=== PATIENT | female | born 1975 | race Caucasian/White ===

== ENCOUNTER 2016-06-02 17:12 | Emergency (ER) | payer SELFPAY ==
[2016-06-02 17:29] VITALS: BP 128/98; PULSE 90; RESP 20; TEMP 98.7
--- NOTE | 2016-06-02 18:06 | ED ---
General Adult HPI - General Chief complaint: Extremity Injury, Lower Stated complaint: Foot pain/teeth are loose Time Seen by Provider: 06/02/16 17:40 Source: patient, RN notes reviewed Mode of arrival: ambulatory Limitations: no limitations - History of Present Illness Initial comments: This is a 41-year-old female presents with right ankle pain 2 weeks after a fall. Patient states she was walking in tall heels when she fell. Patient denies any head injury but states she might have passed out from the heat in [place]. Patient states this happened 2 weeks ago and denies any nausea/ vomiting, headache, neck pain or back pain. Patient did not get an x-ray to the right ankle and she has been able to ambulate but this is painful. Patient has noticed some swelling to the lateral aspect of the right ankle. Patient also complains of dental pain. Patient states multiple teeth to the lower jaw are loose. Patient states she recently moved from [place] and does not have a dentist here yet. Patient denies any purulent drainage or follow-up odor from the mouth. Patient denies any recent fever, chills, shortness breath, chest pain , abdominal pain, nausea/vomiting/diarrhea, back pain, numbness, tingling, hematuria, headache, or visual changes, or any other complaints. - Related Data Home Medications Medication Instructions Recorded Confirmed ALPRAZolam [Xanax] 1 tab PO DAILY 06/02/16 06/02/16 Previous Rx's Medication Instructions Recorded Acetaminophen-Codeine 300-30mg 1 tab PO Q6H #7 tablet 06/02/16 [Tylenol #3] Penicillin V Potassium [Pen Vee K] 500 mg PO BID 7 Days 06/02/16 Allergies Allergy/AdvReac Type Severity Reaction Status Date / Time ketorolac [From Toradol] Allergy Swelling Verified 06/02/16 17:29 sulfamethoxazole Allergy Rash/Hives Verified 06/02/16 17:29 [From Bactrim] trimethoprim [From Bactrim] Allergy Rash/Hives Verified 06/02/16 17:29 Review of Systems ROS Statement: Those systems with pertinent positive or pertinent negative responses have been documented in the HPI. ROS Other: All systems not noted in ROS Statement are negative. Past Medical History Past Medical History: No Reported History History of Any Multi-Drug Resistant Organisms: None Reported Past Surgical History: Appendectomy, Back Surgery, Cholecystectomy, Hysterectomy Past Psychological History: Anxiety, Depression Smoking Status: Current every day smoker Past Alcohol Use History: None Reported Past Drug Use History: Marijuana General Exam - General Exam Comments Initial Comments: General: The patient is awake and alert, in no distress, and does not appear acutely ill. Eye: Pupils are equal, round and reactive to light, extra-ocular movements are intact. No nystagmus. There is normal conjunctiva bilaterally. No signs of icterus. Mouth and throat: Generalized tooth decay. There are multiple loose teeth to the lower jaw line. There is a fractured tooth #19 approximately. No purulent drainage. There are moist mucous membranes and no oral lesions. Neck: Submandibular lymphadenopathy present that is slightly tender. The neck is supple, there is no JVD. No cervical midline tenderness. Cardiovascular: There is a regular rate and rhythm. No murmur, rub or gallop is appreciated. Respiratory: Lungs are clear to auscultation, respirations are non-labored, breath sounds are equal. No wheezes, stridor, rales, or rhonchi. Musculoskeletal: tenderness to the lateral aspect of the right ankle with localized swelling. Capillary refill is normal at less than 2 seconds and posterior tibial pulses are 2+ bilaterally. Normal ROM, Strength 5/5. Sensation intact. Radial pulses equal bilaterally 2+. Neurological: A&O x 3. CN II-XII intact, There are no obvious motor or sensory deficits. Coordination appears grossly intact. Speech is normal. Skin: No external facial swelling. Skin is warm and dry and no rashes or lesions are noted. Psychiatric: Cooperative, appropriate mood & affect, normal judgment. Limitations: no limitations Course Vital Signs 06/02/16 17:25 Temperature 98.7 F Pulse Rate 90 Respiratory 20 Rate Blood Pressure 128/98 O2 Sat by Pulse 97 Oximetry Medical Decision Making - Medical Decision Making This is a 41-year-old female presents with right ankle pain and dental pain. On physical exam there is tenderness to the lateral aspect of the right ankle with localized swelling. Capillary refill is normal at less than 2 seconds and posterior tibial pulses are 2+ bilaterally. There are multiple areas of tooth decay, but no sign of abscess. Patient is afebrile in the EC. An x-ray of the right ankle is done and reviewed showing: Chip fracture of the distal fibula without significant displacement. Reported by Dr. Grimm. A short leg posterior OCL splint to the right lower extremity was placed. Neurovascular was rechecked and is intact. Patient was instructed to stay non-weightbearing to the lower extremity. Patient was instructed to rest, ice, elevate and keep splint on until follow-up with orthopedics. Patient will be given crutches. Discussed with patient to follow-up with orthopedics in the next 1-2 days. Please return to the EC symptoms worsen or for any other concerns. Discussed that patient will be started on a course of antibiotics and discussed close follow-up with a dentist. Patient states she is ALLERGIC to tramadol and patient is requesting something stronger than Tylenol number threes. I discussed with patient that she will receive a short prescription of Tylenol # 3. Discussed [id number] or Motrin as needed for additional pain relief. Discussed that patient should follow up with PCP in one to 2 days or return to the EC for any worsening symptoms or for any further concerns. Patient was receptive to this plan and patient will be discharged home. I discussed his case with attending physician Dr. Becerra who agrees the plan as stated above. Disposition Clinical Impression: Pain, dental, Fracture of distal end of fibula Disposition: HOME SELF-CARE Condition: Good Instructions: Ankle Fracture (ED) Additional Instructions: Please finish entire course of antibiotics. Please follow-up with a dentist as soon as possible. [facility] dental plan: [address] [place] [address], . [employer]: Have to pay $50 for x-rays and the rest is covered. [phone]. Please rest, ice, elevate, and use splint for support. Please stay nonweightbearing to the right lower extremity and use crutches. Please use [id number] Motrin and/or Tylenol for pain. Please follow up with orthopedics tomorrow or as soon as possible. Please follow up with PCP or return to the EC for any worsening symptoms or for any further concerns. Prescriptions: Acetaminophen-Codeine 300-30mg [Tylenol #3] 1 tab PO Q6H #7 tablet Penicillin V Potassium [Pen Vee K] 500 mg PO BID 7 Days Referrals: None,Stated [Primary Care Provider] - 1-2 days Tomas Diamond MD [STAFF PHYSICIAN] - 1-2 days Meir Bravo DO [Doctor of Osteopathic Medicine] - 1-2 days Time of Disposition: 18:31
--- NOTE | 2016-06-02 18:09 | XR ---
EXAMINATION TYPE: XR ankle complete RT DATE OF EXAM: 06/02/2016 6:05 PM COMPARISON: NONE HISTORY: Twisting injury TECHNIQUE: 3 views FINDINGS: There is soft tissue swelling over the lateral malleolus. There is a 1 cm avulsion chip fra cture of the tip of the distal fibula. There is no dislocation. Ankle mortise is anatomic. There are plantar and Achilles calcaneal spurs. IMPRESSION: Chip fracture of the distal fibula without significant displacement.
== END 2016-06-02 18:38 | disposition home or self-care (01) ==
LOC: EC 17:12
DX: S82.831A Other fracture of upper and lower end of right fibula, initial encounter for closed fracture (principal); K08.89 Other specified disorders of teeth and supporting structures; W19.XXXA Unspecified fall, initial encounter; Z88.6 Allergy status to analgesic agent; Z88.1 Allergy status to other antibiotic agents; Z88.2 Allergy status to sulfonamides; F41.9 Anxiety disorder, unspecified; F32.9 Major depressive disorder, single episode, unspecified; F17.200 Nicotine dependence, unspecified, uncomplicated
CPT/HCPCS: 29515; 99283